=== PATIENT | female | born 1975 | race American Indian/Alaskan Native ===

== ENCOUNTER 2016-05-14 09:02 | Emergency (ER) | payer OTHER ==
[2016-05-14 09:12] VITALS: BP 128/95
[2016-05-14] MEDS ORDERED: TORADOL IM ONE (11:41)
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
[2016-05-14] MEDS ORDERED: THERMAZENE 50 GRAM TP ONE (12:00)
== END 2016-05-14 12:28 | disposition home or self-care (01) ==
LOC: ED 09:02
DX: T22.111A Burn of first degree of right forearm, initial encounter (principal); D64.9 Anemia, unspecified; V43.52XA Car driver injured in collision with other type car in traffic accident, initial encounter; Y93.9 Activity, unspecified; Y99.9 Unspecified external cause status; Y92.410 Unspecified street and highway as the place of occurrence of the external cause; Z91.013 Allergy to seafood
CPT/HCPCS: 16000; 96372; 99283; J1885